=== PATIENT | female | born 1960 | race Caucasian/White ===

== ENCOUNTER → 2016-12-22 | Outpatient (CLI) | payer BC ==
--- NOTE | 2016-12-23 13:55 | MAMMOGRAPHY REPORT ---
BILATERAL DIGITAL SCREENING MAMMOGRAM TOMOSYNTHESIS WITH CAD: 12/22/2016 CLINICAL HISTORY: Routine screening. Patient has no complaints. TECHNIQUE: Breast tomosynthesis in addition to standard 2D mammography was performed. Current study was also evaluated with a Computer Aided Detection (CAD) system. COMPARISON: Comparison is made to exams dated: 12/18/2015 mammogram, 12/14/2014 mammogram, 12/13/2013 m ammogram, 11/24/2012 ultrasound, 11/24/2012 mammogram, and 05/26/2012 mammogram - [facility]. BREAST COMPOSITION: There are scattered areas of fibroglandular density in both breasts. FINDINGS: There is stable asymmetry in the upper outer posterior left breast. Stable nodularity in the anterior right breast. No new suspicious mass, architectural distortion or cluster of microcalc ifications is seen. IMPRESSION: ACR BI-RADS CATEGORY 1: NEGATIVE There is no mammographic evidence of malignancy. A 1 year screening mammogram is recommended. The p atient will receive written notification of the results. Approximately 10% of breast cancers are not detected with mammography. A negative mammographic repor t should not delay biopsy if a clinically suggestive mass is present. Esther Pennington M.D. ay/:12/22/2016 17:03:25 Hard Hat Diver: Paulina BLUNT)(Dieter), [facility] letter sent: Normal 1/2 BI-RADS Code: ACR BI-RADS Category 1: Negative
== END | disposition home or self-care (01) ==
LOC: C.MAMM 08:09
PROVIDERS: ATTEND Obstetrics & Gynecology
DX: Z12.31 Encounter for screening mammogram for malignant neoplasm of breast (principal)

== ENCOUNTER → 2017-02-08 | Outpatient (CLI) | payer BC ==
[2017-02-08 09:40] LABS: BASO % 0.3 %; BASO ABS # 0.03 K/uL (0-0.2); COMPLETE YES; EOS % 0.9 %; HEMATOCRIT 43.9 % (37-47); IG% 0.1 %; LYMPH % 19.5 %; LYMPH ABS # 1.74 K/uL (1.2-3.4); MEAN CELL VOLUME 86.8 fL (80-100); MEAN CORPUSCULAR HEMOGLOBIN 28.9 pg (25-34); MEAN CORPUSCULAR HGB CONC 33.3 g/dl (32-36); MEAN PLATELET VOLUME 9.8 fL (7.4-10.4); MONO % 6.1 %; NEUT % 73.1 %; PLATELET COUNT 260 K/uL (130-400); RED BLOOD COUNT 5.06 M/uL (4.2-5.4); WHITE BLOOD COUNT 8.92 K/uL (4.8-10.8)
[2017-02-08 09:48] LABS: URINE APPEARANCE CLEAR (CLEAR); URINE BILIRUBIN NEG (NEG); URINE COLOR YELLOW; URINE NITRITE NEG (NEG); URINE PH 6.5 (4.5-7.5); URINE SPECIFIC GRAVITY 1.011 (1.000-1.030); UROBILINOGEN NEG (NEG); ZZUR CULT IF INDIC CLEAN CATCH NO
[2017-02-08 09:53] LABS: REVIEW REQ? NO
[2017-02-08 09:54] LABS: MANUAL MICROSCOPIC REQUIRED? NO
[2017-02-08 10:27] LABS: BLOOD UREA NITROGEN 13 mg/dl (7-18); BUN/CREATININE RATIO 17.5 (10-20); CALCIUM 9.6 mg/dl (8.5-10.1); CARBON DIOXIDE 31 mmol/L (21-32); CHLORIDE 107 mmol/L (98-107); CREATININE 0.76 mg/dl (0.60-1.20); GLUCOSE 101 mg/dl (70-99); SODIUM 144 mmol/L (136-145)
== END | disposition home or self-care (01) ==
LOC: C.LAB 08:28
PROVIDERS: ATTEND Nurse Practitioner
DX: R50.9 Fever, unspecified (principal)

== ENCOUNTER → 2017-06-18 | Outpatient (CLI) | payer BC ==
[2017-06-18 09:43] LABS: ALT/SGPT 26 U/L (12-78); AST/SGOT 17 U/L (15-37); BLOOD UREA NITROGEN 16 mg/dl (7-18); BUN/CREATININE RATIO 19.2 (10-20); CALCIUM 9.2 mg/dl (8.5-10.1); CARBON DIOXIDE 28 mmol/L (21-32); CHLORIDE 104 mmol/L (98-107); CREATININE 0.83 mg/dl (0.60-1.20); GLUCOSE 115 mg/dl (70-99); POTASSIUM 3.9 mmol/L (3.5-5.1); SODIUM 140 mmol/L (136-145)
[2017-06-18 09:55] LABS: ALB/GLOB RATIO 1.1 (0.9-2); ALKALINE PHOSPHATASE 62 U/L (45-117); CHOLESTEROL 212 mg/dl (0-200); CHOLESTEROL/HDL RATIO 4.9; HDL CHOLESTEROL 43 mg/dl; LDL CHOLESTEROL CALCULATED 128 mg/dl; TRIGLYCERIDES 204 mg/dl (0-150); VERY LOW DENSITY LIPOPROT CALC 41 mg/dl
[2017-06-18 10:33] LABS: ESTIMATED AVERAGE GLUCOSE 134 mg/dl; HA1C FLAG Normal (Normal)
== END | disposition home or self-care (01) ==
LOC: C.LAB 07:06
PROVIDERS: ATTEND Internal Medicine
DX: Z00.00 Encounter for general adult medical examination without abnormal findings (principal); E78.5 Hyperlipidemia, unspecified; I10 Essential (primary) hypertension; R73.01 Impaired fasting glucose

== ENCOUNTER → 2017-12-24 | Outpatient (CLI) | payer OTHER ==
--- NOTE | 2017-12-27 08:07 | MAMMOGRAPHY REPORT ---
BILATERAL DIGITAL SCREENING MAMMOGRAM TOMOSYNTHESIS WITH CAD: 12/24/2017 CLINICAL HISTORY: Routine screening. Patient has no complaints. TECHNIQUE: Breast tomosynthesis in addition to standard 2D mammography was performed. Current study was also evaluated with a Computer Aided Detection (CAD) system. COMPARISON: Comparison is made to exams dated: 12/22/2016 mammogram, 12/18/2015 mammogram, 12/14/2014 m ammogram, 12/13/2013 mammogram, 11/24/2012 mammogram, and 05/26/2012 mammogram - [facility]. BREAST COMPOSITION: There are scattered areas of fibroglandular density in both breasts. FINDINGS: No suspicious masses, calcifications, or areas of architectural distortion are noted in ei ther breast. There has been no significant interval change compared to prior exams. IMPRESSION: ACR BI-RADS CATEGORY 1: NEGATIVE There is no mammographic evidence of malignancy. A 1 year screening mammogram is recommended. The pa tient will receive written notification of the results. Approximately 10% of breast cancers are not detected with mammography. A negative mammographic report should not delay biopsy if a clinically suggestive mass is present. Marilee Son M.D. ah/:12/24/2017 12:06:59 [employer] In[employer]: Khadijah LOVETT(Destinee)(Dieter)([place]), [facility] letter sent: Normal 1/2 BI-RADS Code: ACR BI-RADS Category 1: Negative
== END | disposition home or self-care (01) ==
LOC: C.MAMM 08:47
PROVIDERS: ATTEND Obstetrics & Gynecology
DX: Z12.31 Encounter for screening mammogram for malignant neoplasm of breast (principal)